=== PATIENT | female | born 1940 | race Caucasian/White ===

== ENCOUNTER 2024-11-21 14:54 | Inpatient (IN) | payer MEDICARE ==
[2024-11-21] MEDS: ASPIRIN 81 MG PO STA (15:39)
[2024-11-21] MEDS: SODIUM CHLORIDE 0.9% 500 ML 500 ML IV STA (15:40)
[2024-11-21] MEDS: DILTIAZEM 5 MG/ML 5 ML VIAL IVP PRN (15:42)
[2024-11-21 15:43] LABS: Basophils # (A) 0.04 10*3/uL (0.00-0.10); Basophils % (A) 0.3 %; HCT 39.4 % (37.2-46.3); HGB 13.4 g/dL (12.0-15.0); Lymphocytes % (A) 6.8 %; MCH 29.6 pg (27.0-32.0); MCV 87.2 fL (80.0-97.0); Mean Platelet Volume 11.1 fL (9.5-12.2); Monocytes # (A) 0.84 10*3/uL (0.20-1.00); Monocytes % (A) 5.7 %; Neutrophils # (A) 12.81 10*3/uL (1.80-7.70); Neutrophils % (A) 86.7 %; Platelet Count 246 10*3/uL (140-440); RBC 4.52 10*6/uL (4.10-5.20); RDW 14.8 % (11.5-14.5); WBC 14.77 10*3/uL (4.50-10.00)
[2024-11-21] MEDS: DILTIAZEM 125 MG in DEXTROSE 5% IN WATER 100 ML IV SCH (15:43)
[2024-11-21] MEDS: HEPARIN SODIUM 1,000 UN/ML (10ML VL) IV ONE (15:47)
--- NOTE | 2024-11-21 15:48 | ED ---
General Adult HPI - General Chief complaint: Arrhythmia/Palpitations Stated complaint: Tachycardia Source: patient, EMS Mode of arrival: EMS Limitations: no limitations - History of Present Illness Initial comments: Patient is an 84-year-old female, previously healthy presenting today for shortness of breath. Patient states over the last week she has noticed exertional shortness of breath. Today she was on her 4 mile walk when she began feeling more short of breath and went into a primary care provider's office where she was found to be in A-fib with RVR. Patient was transferred to hospital via EMS and was given 15 mg of Cardizem prior to arrival. Patient reportedly had heart rate in the 180s prior to Cardizem administration which brought it down to the 120s. Of note patient was also additionally noted to be hypoxic with pulse ox approximately 90% on room air patient herself denies any history of A-fib and is not on blood thinners. She denies any chest pain. N otes intermittent palpitations. Denies any lightheadedness, dizziness, nausea, vomiting, diarrhea, melena, hematochezia, fevers, chills, leg swelling, hemoptysis. Endorses a dry cough. Denies any history of cancer, is a non- smoker. Not on estrogen replacement therapy. No recent travel surgeries or hospitalizations. No history of blood clots. - Related Data Previous Rx's Medication Instructions Recorded Apixaban [Eliquis] 2.5 mg PO BID #60 tab 11/23/24 Amiodarone [Cordarone] 200 mg PO DAILY #180 tab 11/24/24 Atorvastatin [Lipitor] 80 mg PO HS #30 tab 11/24/24 Digoxin [Lanoxin] 125 mcg PO DAILY #30 tab 11/24/24 Furosemide [Lasix] 40 mg PO DAILY #30 tab 11/24/24 Metoprolol Tartrate [Lopressor] 50 mg PO BID #60 tab 11/24/24 Potassium Chloride ER [K-Dur 10] 10 meq PO DAILY 15 Days #15 tab 11/24/24 lisinopriL [Zestril] 2.5 mg PO DAILY #30 tab 11/24/24 Allergies Allergy/AdvReac Type Severity Reaction Status Date / Time No Known Allergies Allergy Verified 11/21/24 16:08 Review of Systems ROS Statement: Those systems with pertinent positive or pertinent negative responses have been documented in the HPI. ROS Other: All systems not noted in ROS Statement are negative. Past Medical History Past Medical History: No Reported History Past Surgical History: No Surgical Hx Reported Past Psychological History: No Psychological Hx Reported Smoking Status: Never smoker Past Alcohol Use History: Occasional Past Drug Use History: None Reported General Exam - General Exam Comments Initial Comments: PE: CONSTITUTIONAL: [no apparent distress, well appearing] SKIN: [warm, dry, no jaundice, hives or petechiae] EYES:[ pupils are equally round, extraocular movements intact without nystagmus, clear conjunctiva, non-icteric sclera] HENT: [normocephalic, atraumatic, moist mucus membranes, oropharynx clear without exudates] NECK: , [Full range of motion, normal appearance] PULMONARY: [clear to auscultation without wheezes, rhonchi, or rales, normal excursion, no accessory muscle use and no stridor] CARDIOVASCULAR:[Tachycardia, irregularly irregular rate and rhythm normal S1 and S2. Holosystolic murmur noted at the apex, no rubs or gallops. Strong radial pulses with intact distal perfusion. No lower extremity edema] GASTROINTESTINAL: [soft, active bowel sounds throughout, non-tender, non- distended, no palpable masses, no rebound or guarding. No hepatosplenomegaly] GENITOURINARY: MUSCULOSKELETAL: [Extremities have no gross deformity, no edema, redness, or swelling. No calf swelling ] NEUROLOGIC: [_a/o x 3, GCS 15, normal mentation and speech. Moves all extremities x 4 without motor or sensory deficit] PSYCHIATRIC:[ _normal mood and affect, thought process is clear and linear] Limitations: no limitations Course Vital Signs 11/21/24 11/21/24 11/21/24 14:58 15:08 15:53 Temperature Pulse Rate 137 H 102 H Pulse Rate [ Clinical Safety Manager ] Respiratory 24 20 Rate Blood Pressure 128/81 118/93 126/86 Blood Pressure [Right Arm] O2 Sat by Pulse 91 L 96 Oximetry 11/21/24 11/22/24 11/22/24 18:32 00:30 06:11 Temperature Pulse Rate 96 101 H 112 H Pulse Rate [ Clinical Safety Manager ] Respiratory 18 20 19 Rate Blood Pressure 120/90 127/95 126/88 Blood Pressure [Right Arm] O2 Sat by Pulse 95 91 L 91 L Oximetry 11/22/24 11/22/24 11/22/24 07:52 09:00 10:29 Temperature 97.8 F Pulse Rate 108 H 115 H 98 Pulse Rate [ Clinical Safety Manager ] Respiratory 16 18 18 Rate Blood Pressure 123/73 124/85 83/68 Blood Pressure [Right Arm] O2 Sat by Pulse 93 L 95 94 L Oximetry 11/22/24 11/22/24 11/22/24 11:04 12:00 12:05 Temperature 98.0 F Pulse Rate 92 102 H Pulse Rate [ 81 Clinical Safety Manager ] Respiratory 18 17 16 Rate Blood Pressure 96/74 100/80 Blood Pressure 105/71 [Right Arm] O2 Sat by Pulse 94 L 95 98 Oximetry 11/22/24 16:00 Temperature 98.4 F Pulse Rate Pulse Rate [ 78 Clinical Safety Manager ] Respiratory 18 Rate Blood Pressure Blood Pressure 101/67 [Right Arm] O2 Sat by Pulse 95 Oximetry EKG Findings - EKG Comments: EKG Findings:: Atrial fibrillation with RVR, rate 135 bpm QT/QTc 326/405 ms, left axis deviation, no clear ST elevations or depressions, Medical Decision Making - Medical Decision Making Was pt. sent in by a medical professional or institution (Dr. PA, MIDDLE SCHOOL COACH, urgent care, hospital, or fdc...) When possible be specific @ -Patient was sent in by primary care provider's office where she had stopped after beginning experiencing symptom Did you speak to anyone other than the patient for history (EMS, parent, family, police, friend...)? What history was obtained from this source @ -No Did you review nursing and triage notes (agree or disagree)? Why? @ -I reviewed and agree with nursing and triage notes Were old charts reviewed (outside hosp., previous admission, EMS record, old EKG, old radiological studies, urgent care reports/EKG's, fdc records)? Report findings @ -Medical records reviewed-no prior records available for Differential Diagnosis (chest pain, altered mental status, abdominal pain women, abdominal pain men, vaginal bleeding, weakness, fever, dyspnea, syncope, headache, dizziness, GI bleed, back pain, seizure, CVA, palpatations, mental health, musculoskeletal)? @ -Differential Palpitations Ventricular arrhythmias, atrial arrhythmias, myocardial infarction, anemia, thyrotoxicosis, electrolyte imbalance, hypokalemia, pulmonary embolism, pulmonary disease, drugs, alcohol, anxiety, stress.... This is not meant to be an all-inclusive list. EKG interpreted by me (3pts min.). @ -As above X-rays interpreted by me (1pt min.). @ -None done CT interpreted by me (1pt min.). @ Personally reviewed CT chest, I see no evidence of pulmonary embolism, bilateral pleural effusions noted, agree with radiologist interpretation U/S interpreted by me (1pt. min.). @ -None done What testing was considered but not performed or refused? (CT, X-rays, U/S, labs)? Why? @ -None What meds were considered but not given or refused? Why? @ -None Did you discuss the management of the patient with other professionals (professionals i.e. , PA, MIDDLE SCHOOL COACH, lab, RT, psych nurse, social security benefits interviewer, reinforcing rod layer, teacher, booking police officer, showcase trimmer)? Give summary @ -No Was smoking cessation discussed for >3mins.? @ -No Was critical care preformed (if so, how long)? @ Yes 35 minutes Were there social determinants of health that impacted care today? How? (Homelessness, low income, unemployed, alcoholism, drug addiction, transportation, low edu. Level, literacy, decrease access to med. care, longterm, rehab)? @ -No Was there de-escalation of care discussed even if they declined (Discuss DNR or withdrawal of care, Hospice)? @ -No What co-morbidities impacted this encounter? (DM, HTN, Smoking, COPD, CAD, Cancer, CVA, ARF, Chemo, Hep., AIDS, mental health diagnosis, sleep apnea, morbid obesity)? @ -None Was patient admitted / discharged? Hospital course, mention meds given and route, prescriptions, significant lab abnormalities, going to OR and other pertinent info. @ Admission- This is a pleasant 84-year-old female, previously healthy presenting today for shortness of breath and found to be in A-fib with RVR. 15 mg Cardizem given prior to arrival that reportedly brought her heart rate from the 180s down to the 120s. On arrival patient has heart rates in 130s to 120s. Blood pressure stable. She is reportedly hypoxic with pulse ox 90% on room air placed on 2 L oxygen nasal cannula. Lungs are clear to auscultation bilaterally and she has no increased work of breathing. Patient will be given 17 mg Cardizem, 0.35 mg/kg bolus, placed on Cardizem drip. Symptoms likely started about 1 week ago given exertional dyspnea began at that time so was started on heparin infusion, anticipate admission. Labs are significant for mild leukocytosis white blood cell count 14.77, D-dimer 1.06. Mild hyponatremia sodium 129 was given 500 cc normal saline. GFR within normal limits, AST/ALT 91/94, troponin 0.031. BNP 9480. Personally viewed CT PE study see no evidence of pulmonary embolism, radiologist does comment on bilateral pleural effusions and anasarca. Given elevated BNP and CT findings patient was given 40 mg IV Lasix. Patient's rate is currently overall controlled on Cardizem infusion. She will be admitted to the hospital for further treatment. Updated pt to findings and plan of care. Case discussed with AMANDEEP Flores, kindly accepts pt for admission. Undiagnosed new problem with uncertain prognosis? @ -No Drug Therapy requiring intensive monitoring for toxicity (Heparin, Nitro, Insulin, Cardizem)? Yes, Cardizem, heparin Were any procedures done? @ -No Diagnosis/symptom? @New onset congestive heart failure, A-fib with RVR, hyponatremia Acute, or Chronic, or Acute on Chronic? Acute Uncomplicated (without systemic symptoms) or Complicated (systemic symptoms)? Complicated Side effects of treatment? @ -No Exacerbation, Progression, or Severe Exacerbation? @ -No Poses a threat to life or bodily function? How? (Chest pain, [place], [place], pneumonia, PE, COPD, DKA, ARF, appy, cholecystitis, CVA, Diverticulitis, Homicidal, Suicidal, threat to staff... and all critical care pts) @ -Yes - Lab Data Result diagrams: 11/23/24 06:58 11/24/24 11:59 Lab Results 11/21/24 11/21/24 11/21/24 Range/Units 15:31 15:31 15:31 WBC 14.77 H (4.50-10.00) 10*3/uL RBC 4.52 (4.10-5.20) 10*6/uL Hgb 13.4 (12.0-15.0) g/dL Hct 39.4 (37.2-46.3) % MCV 87.2 (80.0-97.0) fL MCH 29.6 (27.0-32.0) pg MCHC 34.0 (32.0-37.0) g/dL Plt Count 246 (140-440) 10*3/uL MPV 11.1 (9.5-12.2) fL Immature Gran % (Auto) 0.5 % Neutrophils % 86.7 % Lymphocytes % 6.8 % Monocytes % 5.7 % Eosinophils % 0.0 % Basophils % 0.3 % Immature Gran # 0.08 H (0.00-0.04) 10*3/uL Neutrophils # 12.81 H (1.80-7.70) 10*3/uL Lymphocytes # 1.00 (0.90-5.00) 10*3/uL Monocytes # 0.84 (0.20-1.00) 10*3/uL Eosinophils # 0.00 L (0.04-0.35) 10*3/uL Basophils # 0.04 (0.00-0.10) 10*3/uL PT 14.3 H (10.0-12.5) sec INR 1.4 H (<1.2) APTT 23.2 (22.0-30.0) sec D-Dimer 1.06 H (<0.60) mg/L FEU Sodium 129 L (137-145) mmol/L Potassium 4.5 (3.5-5.1) mmol/L Chloride 96 L (98-107) mmol/L Carbon Dioxide 21 L (22-30) mmol/L Anion Gap 12 mmol/L BUN 25 H (7-17) mg/dL Creatinine 0.88 (0.52-1.04) mg/dL Est GFR (CKD-EPI)AfAm 70 (>60 ml/min/1.73 sqM) Est GFR (CKD-EPI)NonAf 61 (>60 ml/min/1.73 sqM) Glucose 118 H (74-99) mg/dL Calcium 8.8 (8.4-10.2) mg/dL Magnesium 1.9 (1.6-2.3) mg/dL Total Bilirubin 1.0 (0.2-1.3) mg/dL AST 91 H (14-36) U/L ALT 94 H (4-34) U/L Alkaline Phosphatase 81 (38-126) U/L Troponin I (0.000-0.034) ng/mL NT-Pro-B Natriuret Pep pg/mL Total Protein 6.2 L (6.3-8.2) g/dL Albumin 3.7 (3.5-5.0) g/dL TSH 3.560 (0.465-4.680) mIU/L 11/21/24 11/21/24 Range/Units 15:31 15:31 WBC (4.50-10.00) 10*3/uL RBC (4.10-5.20) 10*6/uL Hgb (12.0-15.0) g/dL Hct (37.2-46.3) % MCV (80.0-97.0) fL MCH (27.0-32.0) pg MCHC (32.0-37.0) g/dL Plt Count (140-440) 10*3/uL MPV (9.5-12.2) fL Immature Gran % (Auto) % Neutrophils % % Lymphocytes % % Monocytes % % Eosinophils % % Basophils % % Immature Gran # (0.00-0.04) 10*3/uL Neutrophils # (1.80-7.70) 10*3/uL Lymphocytes # (0.90-5.00) 10*3/uL Monocytes # (0.20-1.00) 10*3/uL Eosinophils # (0.04-0.35) 10*3/uL Basophils # (0.00-0.10) 10*3/uL PT (10.0-12.5) sec INR (<1.2) APTT (22.0-30.0) sec D-Dimer (<0.60) mg/L FEU Sodium (137-145) mmol/L Potassium (3.5-5.1) mmol/L Chloride (98-107) mmol/L Carbon Dioxide (22-30) mmol/L Anion Gap mmol/L BUN (7-17) mg/dL Creatinine (0.52-1.04) mg/dL Est GFR (CKD-EPI)AfAm (>60 ml/min/1.73 sqM) Est GFR (CKD-EPI)NonAf (>60 ml/min/1.73 sqM) Glucose (74-99) mg/dL Calcium (8.4-10.2) mg/dL Magnesium (1.6-2.3) mg/dL Total Bilirubin (0.2-1.3) mg/dL AST (14-36) U/L ALT (4-34) U/L Alkaline Phosphatase (38-126) U/L Troponin I 0.031 (0.000-0.034) ng/mL NT-Pro-B Natriuret Pep 9480 pg/mL Total Protein (6.3-8.2) g/dL Albumin (3.5-5.0) g/dL TSH (0.465-4.680) mIU/L Disposition Clinical Impression: New onset atrial fibrillation, New onset of congestive heart failure Disposition: ADMITTED IP TO THIS HOSP Condition: Stable
[2024-11-21] MEDS: HEPARIN SOD,PORK IN 0.45% NACL 25,000 UNIT in 0.45% NACL 1 250ML.BAG IV SCH (15:49)
[2024-11-21 15:53] LABS: ALT 94 U/L (4-34); AST 91 U/L (14-36); African American GFR (CKD) 70 (>60 ml/min/1.73 sqM); Albumin 3.7 g/dL (3.5-5.0); Alkaline Phosphatase 81 U/L (38-126); Anion Gap 12 mmol/L; Blood Urea Nitrogen 25 mg/dL (7-17); Calcium 8.8 mg/dL (8.4-10.2); Carbon Dioxide 21 mmol/L (22-30); Chloride 96 mmol/L (98-107); Glucose 118 mg/dL (74-99); Magnesium 1.9 mg/dL (1.6-2.3); Non-African American GFR(CKD) 61 (>60 ml/min/1.73 sqM); Potassium 4.5 mmol/L (3.5-5.1); Sodium 129 mmol/L (137-145); Total Protein 6.2 g/dL (6.3-8.2)
[2024-11-21 16:04] LABS: INR 1.4 (<1.2); Partial Thromboplastin Time 23.2 sec (22.0-30.0); Prothrombin Time 14.3 sec (10.0-12.5)
--- NOTE | 2024-11-21 17:38 | CT ---
EXAMINATION TYPE: CT chest angio for PE CT DLP: 209.6 mGycm, Automated exposure control for dose reduction was used. DATE OF EXAM: 11/21/2024 5:24 PM COMPARISON: None CLINICAL INDICATION:Female, 84 years old with history of a fib, hypoxia; a fib, hypoxia TECHNIQUE/CONTRAST: CTA scan of the thorax is performed with IV Contrast, patient injected with 61ml mL of Isovue 370, pu lmonary embolism protocol. MIP images are created and reviewed. FINDINGS: Pulmonary Artery: There is no evidence for a filling defect within the pulmonary vasculature to sugge st acute pulmonary embolism. The pulmonary artery is of normal size. Reflux of contrast into the IV C and hepatic veins. Lungs/Pleura: Moderate bilateral pleural effusions with scattered regions of intralobular septal thic kening and patchy groundglass opacities within the bilateral lower lobes. Scattered regions of linear atelectasis. Additional view consolidated opacities within the bilateral upper lobes. Biapical pleur al-parenchymal scarring. Airway: Large airways are patent. Heart: Cardiomegaly is demonstrated.Trace pericardial effusion No significant coronary artery calcifi cations. Vasculature: No evidence of aortic aneurysm. Mild atherosclerotic calcification of the aorta and its branches. Mediastinum: No gross evidence of adenopathy. Musculoskeletal: No acute osseous abnormalities. Remote healed left posterior eighth rib fracture wit h sclerosis. Soft Tissues: Diffuse anasarca. Lower neck: No significant findings. Upper Abdomen: Mesenteric edema.. IMPRESSION: 1. No evidence of pulmonary embolism. 2. Cardiomegaly with moderate bilateral pleural effusions, interlobular septal thickening, and ground glass opacities. Additional diffuse anasarca. Findings suggest CHF exacerbation/volume overload. Supe rimposed infectious process is not excluded. [facility], , 11/21/2024 5:36 PM
[2024-11-21] MEDS: FUROSEMIDE 10 MG/ML 4 ML VIAL IV STA (18:43)
[2024-11-21] MEDS: ATORVASTATIN 80 MG TAB PO SCH (20:34)
[2024-11-22 06:12] LABS: Basophils # (A) 0.04 10*3/uL (0.00-0.10); Basophils % (A) 0.3 %; Eosinophils # (A) 0.03 10*3/uL (0.04-0.35); Eosinophils % (A) 0.2 %; HCT 37.8 % (37.2-46.3); HGB 12.9 g/dL (12.0-15.0); Lymphocytes # (A) 0.95 10*3/uL (0.90-5.00); Lymphocytes % (A) 6.4 %; MCH 29.9 pg (27.0-32.0); MCHC 34.1 g/dL (32.0-37.0); MCV 87.5 fL (80.0-97.0); Mean Platelet Volume 10.9 fL (9.5-12.2); Monocytes # (A) 0.82 10*3/uL (0.20-1.00); Monocytes % (A) 5.5 %; Neutrophils # (A) 13.01 10*3/uL (1.80-7.70); Neutrophils % (A) 86.9 %; Platelet Count 240 10*3/uL (140-440); RBC 4.32 10*6/uL (4.10-5.20); RDW 14.9 % (11.5-14.5); WBC 14.95 10*3/uL (4.50-10.00)
[2024-11-22 06:38] LABS: ALT 94 U/L (4-34); AST 87 U/L (14-36); African American GFR (CKD) 75 (>60 ml/min/1.73 sqM); Albumin 3.3 g/dL (3.5-5.0); Alkaline Phosphatase 72 U/L (38-126); Anion Gap 7 mmol/L; Bilirubin, Delta 0.2 mg/dL (0.0-0.2); Bilirubin,Unconjugated 0.6 mg/dL (0.0-1.1); Blood Urea Nitrogen 23 mg/dL (7-17); Calcium 8.8 mg/dL (8.4-10.2); Carbon Dioxide 27 mmol/L (22-30); Chloride 94 mmol/L (98-107); Glucose 91 mg/dL (74-99); Magnesium 1.8 mg/dL (1.6-2.3); Non-African American GFR(CKD) 65 (>60 ml/min/1.73 sqM); Potassium 4.1 mmol/L (3.5-5.1); Sodium 128 mmol/L (137-145); Total Bilirubin 0.8 mg/dL (0.2-1.3); Total Protein 5.6 g/dL (6.3-8.2)
--- NOTE | 2024-11-22 07:01 | P.HPIM ---
History of Present Illness This is a pleasant 84 years old female with no significant past medical history. Presents because of dyspnea. Patient states she walks every day and lately she started having dyspnea since her Wednesday. Yesterday she was walking into her usual routine when she decided to walk and into one of the doctors office found to have high heart rate about 180-190, she and she was referred to the hospital" she got Cardizem dose and her heart rate went down to 120S She denies chest pain or coughing. No specific GI/ symptom. No headache dizziness weakness or numbness. She denies smoking or alcohol. Vital stable and she is afebrile but heart rate was 137 earlier currently better controlled 96 while on treatment she is not saturating 90s on 3 L oxygen via nasal cannula. Labs showing leukocytosis of 14.7, sodium 129, liver enzymes mildly elevated. D-dimer elevated at 1.0 Troponin are elevated 0.03 and 0.04. TSH is normal at 3.5 proBNP is elevated 9480 CTA showing no pulmonary embolism with mild cardiomegaly and cannot glass [place] suspicious for CHF, pneumonia however is not excluded. EKG showing A-fib with a rate of [address]-T changes Patient currently started on Cardizem and heparin drips also she was started on IV Lasix and aspirin Review of Systems Review of systems CONSTITUTIONAL: No fever, no malaise, no fatigue. HEENT: No recent visual problems or hearing problems. Denied any sore throat. CARDIOVASCULAR: No orthopnea, PND, no palpitations, no syncope. PULMONARY: no cough, no hemoptysis. GASTROINTESTINAL: No diarrhea, no nausea, no vomiting, no abdominal pain. Normoactive bowel sounds. NEUROLOGICAL: No headaches, no weakness, no numbness. HEMATOLOGICAL: Denies any bleeding or petechiae. GENITOURINARY: Denies any burning micturition, frequency, or urgency. MUSCULOSKELETAL/RHEUMATOLOGICAL: Denies any joint pain, swelling, or any muscle pain. ENDOCRINE: Denies any polyuria or polydipsia. Past Medical History Past Medical History: No Reported History Past Surgical History: No Surgical Hx Reported Past Psychological History: No Psychological Hx Reported Smoking Status: Never smoker Past Alcohol Use History: Occasional Past Drug Use History: None Reported Medications and Allergies Home Medications Medication Instructions Recorded Confirmed Type Apixaban [Eliquis] 5 mg PO BID #60 tab 11/22/24 Rx Allergies Allergy/AdvReac Type Severity Reaction Status Date / Time No Known Allergies Allergy Verified 11/21/24 16:08 Physical Exam Vitals: Vital Signs Pulse Resp BP Pulse Ox 11/22/24 06:11 112 H 19 126/88 91 L 11/22/24 00:30 101 H 20 127/95 91 L 11/21/24 18:32 96 18 120/90 95 11/21/24 15:53 102 H 20 126/86 11/21/24 15:08 118/93 96 11/21/24 14:58 137 H 24 128/81 91 L Intake and Output 11/21/24 11/21/24 11/22/24 14:59 22:59 06:59 Other: Weight 49.895 kg GENERAL: The patient is alert and oriented x3, not in any acute distress. Well developed, well nourished. HEENT: Pupils are round and equally reacting to light. EOMI. No scleral icterus. No conjunctival pallor. Normocephalic, atraumatic. No pharyngeal erythema. No thyromegaly. CARDIOVASCULAR: S1 and S2 present. No murmurs, rubs, or gallops. -PULMONARY: Chest is clear to auscultation, no wheezing , mild bilateral basal crackles. ABDOMEN: Soft, nontender, nondistended, normoactive bowel sounds. No palpable organomegaly. MUSCULOSKELETAL: No joint swelling or deformity. EXTREMITIES: No cyanosis, clubbing. 2+ bilateral pitting leg edema. NEUROLOGICAL: Gross neurological examination did not reveal any focal deficits. SKIN: No rashes. no petechiae. Results CBC & Chem 7: 11/22/24 05:52 11/22/24 05:52 Labs: Abnormal Lab Results - Last 24 Hours (Table) 11/21/24 11/21/24 11/21/24 Range/Units 15:31 15:31 15:31 WBC 14.77 H (4.50-10.00) 10*3/uL Immature Gran # 0.08 H (0.00-0.04) 10*3/uL Neutrophils # 12.81 H (1.80-7.70) 10*3/uL Eosinophils # 0.00 L (0.04-0.35) 10*3/uL PT 14.3 H (10.0-12.5) sec INR 1.4 H (<1.2) APTT (22.0-30.0) sec D-Dimer 1.06 H (<0.60) mg/L FEU Sodium 129 L (137-145) mmol/L Chloride 96 L (98-107) mmol/L Carbon Dioxide 21 L (22-30) mmol/L BUN 25 H (7-17) mg/dL Glucose 118 H (74-99) mg/dL AST 91 H (14-36) U/L ALT 94 H (4-34) U/L Troponin I (0.000-0.034) ng/mL Total Protein 6.2 L (6.3-8.2) g/dL Albumin (3.5-5.0) g/dL 11/21/24 11/21/24 11/22/24 Range/Units 21:52 21:53 05:52 WBC (4.50-10.00) 10*3/uL Immature Gran # (0.00-0.04) 10*3/uL Neutrophils # (1.80-7.70) 10*3/uL Eosinophils # (0.04-0.35) 10*3/uL PT (10.0-12.5) sec INR (<1.2) APTT 39.4 H 36.5 H (22.0-30.0) sec D-Dimer (<0.60) mg/L FEU Sodium (137-145) mmol/L Chloride (98-107) mmol/L Carbon Dioxide (22-30) mmol/L BUN (7-17) mg/dL Glucose (74-99) mg/dL AST (14-36) U/L ALT (4-34) U/L Troponin I 0.041 H* (0.000-0.034) ng/mL Total Protein (6.3-8.2) g/dL Albumin (3.5-5.0) g/dL 11/22/24 11/22/24 Range/Units 05:52 05:52 WBC 14.95 H (4.50-10.00) 10*3/uL Immature Gran # 0.10 H (0.00-0.04) 10*3/uL Neutrophils # 13.01 H (1.80-7.70) 10*3/uL Eosinophils # 0.03 L (0.04-0.35) 10*3/uL PT (10.0-12.5) sec INR (<1.2) APTT (22.0-30.0) sec D-Dimer (<0.60) mg/L FEU Sodium 128 L (137-145) mmol/L Chloride 94 L (98-107) mmol/L Carbon Dioxide (22-30) mmol/L BUN 23 H (7-17) mg/dL Glucose (74-99) mg/dL AST 87 H (14-36) U/L ALT 94 H (4-34) U/L Troponin I (0.000-0.034) ng/mL Total Protein 5.6 L (6.3-8.2) g/dL Albumin 3.3 L (3.5-5.0) g/dL Assessment and Plan Assessment: New onset atrial fibrillation with RVR Acute CHF Hypervolemic hyponatremia Leukocytosis, pneumonia still possibility although felt less likely Acute hypoxic respiratory failure secondary to above Mild transaminitis Elevated D-dimer with negative CTA for pulmonary embolism Plan: Continue with heparin drip Continue with Cardizem drip Continue with IV Lasix 40 mg twice daily Monitor creatinine and electrolytes and vitals Cardiology consult Follow-up echocardiogram Continue with aspirin Labs and medication were reviewed.. Continue same treatment. Continue with symptomatic treatment. Resume home medication. Monitor labs and vitals. DVT and GI prophylaxis. Further recommendations as per clinical course of the patient DVT prophylaxis: heparin GI Prophylaxis: Pepcid PT/OT: Pending Prognosis is guarded
[2024-11-22] MEDS: FUROSEMIDE 10 MG/ML 4 ML VIAL IV SCH (07:47)
[2024-11-22] MEDS: HEPARIN SODIUM 1,000 UN/ML (10ML VL) IV PRN (08:09)
[2024-11-22] MEDS: APIXABAN 2.5 MG TABLET PO SCH (08:55)
[2024-11-22] MEDS: FAMOTIDINE 20 MG/2 ML VIAL IV SCH (08:55)
[2024-11-22] MEDS: METOPROLOL TARTRATE 25 MG TAB PO SCH (08:55)
--- NOTE | 2024-11-22 09:21 | P.CRDCN ---
History of Present Illness History of present illness: HISTORY OF PRESENT ILLNESS: This is a 84-year-old female with no significant past medical history. Patient does not follow with a office helper. We have been asked to see the patient in co nsultation for atrial fibrillation and CHF. Patient examined at the bedside. Patient states that she was on her normal walk yesterday when she began to feel short of breath. She states that she was walking right near her primary care physician's office so she decided to walk inside and was seen by a provider. Patient was found to be in A-fib with RVR and she was directed to come to the emergency room. Patient denies any known history of atrial fibrillation. Patient was started on IV heparin and IV Cardizem. She remains in atrial fibrillation at the time of examination with heart rate in the 120s. She reports mild shortness of breath. Denies any chest pain or pressure. DIAGNOSTICS: - EKG reveals A-fib with RVR. - Chest CTA: Negative for pulmonary embolism. Cardiomegaly with moderate bilateral pleural effusions, intralobular septal thickening and groundglass opacities. Additional diffuse anasarca. - Laboratory data: WBC 14.95. Hemoglobin 12.9. Platelet count 240. D-dimer 1. 06. Sodium 128. Potassium 4.1. BUN 23. Creatinine 0.83. AST 87. ALT 94. Troponin 0.031. 0.041. proBNP 9480. TSH 3.560. - Current home cardiac medications include none. - No previous echocardiogram, stress test, or cardiac catheterization available in EMR for review REVIEW OF SYSTEMS: At the time of my exam: CONSTITUTIONAL: Denies fever or chills. HEENT: Denies blurred vision, vision changes, or eye pain. Denies hemoptysis CARDIOVASCULAR: Denies chest pain. Denies orthopnea. Denies PND. Denies palpitations RESPIRATORY: Denies shortness of breath. GASTROINTESTINAL: Denies abdominal pain. Denies nausea or vomiting. HEMATOLOGIC: Denies bleeding disorders. GENITOURINARY: Denies any blood in urine. SKIN: Denies pruitis. Denies rash. PHYSICAL EXAM: VITAL SIGNS: Reviewed. GENERAL: Well-developed in no acute distress. HEENT: Head is normocephalic. Pupils are equal, round. Sclerae anicteric. Mucous membranes of the mouth are moist. Neck supple. No JVD or thyromegaly LUNGS: Respirations even and unlabored. Lungs essentially clear to auscultation bilaterally. HEART: Mildly tachycardic. Irregular rate and rhythm. S1 and S2 heard. ABDOMEN: Soft. Nondistended. Nontender. EXTREMITIES: Normal range of motion. No clubbing or cyanosis. Peripheral pulses intact. No lower extremity edema NEUROLOGIC: Awake and alert. Oriented x 3. ASSESSMENT: New onset atrial fibrillation with RVR Acute heart failure, type unknown, echo pending Hyponatremia PLAN: Obtain 2D echo to assess cardiac structure and function TSH checked and within normal limits Begin metoprolol tartrate 25 mg twice daily Discontinue IV Cardizem after metoprolol administration if heart rate remains stable Begin Eliquis 2.5 mg twice a day. Discontinue IV heparin. Continue IV Lasix 40 mg every 12 hours Daily weights, accurate intake and output, and monitoring of kidney function Continue telemetry monitoring Further recommendations pending patient course Nurse practitioner note has been reviewed by physician. Signing provider agrees with the documented findings, assessment, and plan of care documented by INFORMATION SUPPORT PROJECT MANAGER as a scribe. Past Medical History Past Medical History: No Reported History Past Surgical History: No Surgical Hx Reported Past Psychological History: No Psychological Hx Reported Smoking Status: Never smoker Past Alcohol Use History: Occasional Past Drug Use History: None Reported Medications and Allergies Home Medications Medication Instructions Recorded Confirmed Type Apixaban [Eliquis] 5 mg PO BID #60 tab 11/22/24 Rx Allergies Allergy/AdvReac Type Severity Reaction Status Date / Time No Known Allergies Allergy Verified 11/21/24 16:08 Physical Exam Vitals: Vital Signs Pulse Resp BP Pulse Ox 11/22/24 07:52 108 H 16 123/73 93 L 11/22/24 06:11 112 H 19 126/88 91 L 11/22/24 00:30 101 H 20 127/95 91 L 11/21/24 18:32 96 18 120/90 95 11/21/24 15:53 102 H 20 126/86 11/21/24 15:08 118/93 96 11/21/24 14:58 137 H 24 128/81 91 L Results 11/22/24 05:52 11/22/24 05:52 Cardiac Enzymes 11/21/24 11/21/24 11/21/24 Range/Units 15:31 15:31 21:53 AST 91 H (14-36) U/L Troponin I 0.031 0.041 H* (0.000-0.034) ng/mL 11/22/24 Range/Units 05:52 AST 87 H (14-36) U/L Troponin I (0.000-0.034) ng/mL Coagulation 11/21/24 11/21/24 11/22/24 Range/Units 15:31 21:52 05:52 PT 14.3 H (10.0-12.5) sec APTT 23.2 39.4 H 36.5 H (22.0-30.0) sec CBC 11/21/24 11/22/24 Range/Units 15:31 05:52 WBC 14.77 H 14.95 H (4.50-10.00) 10*3/uL RBC 4.52 4.32 (4.10-5.20) 10*6/uL Hgb 13.4 12.9 (12.0-15.0) g/dL Hct 39.4 37.8 (37.2-46.3) % Plt Count 246 240 (140-440) 10*3/uL Comprehensive Metabolic Panel 11/21/24 11/22/24 Range/Units 15:31 05:52 Sodium 129 L 128 L (137-145) mmol/L Potassium 4.5 4.1 (3.5-5.1) mmol/L Chloride 96 L 94 L (98-107) mmol/L Carbon Dioxide 21 L 27 (22-30) mmol/L BUN 25 H 23 H (7-17) mg/dL Creatinine 0.88 0.83 (0.52-1.04) mg/dL Glucose 118 H 91 (74-99) mg/dL Calcium 8.8 8.8 (8.4-10.2) mg/dL Unconjugated Bilirubin 0.6 (0.0-1.1) mg/dL AST 91 H 87 H (14-36) U/L ALT 94 H 94 H (4-34) U/L Alkaline Phosphatase 81 72 (38-126) U/L Total Protein 6.2 L 5.6 L (6.3-8.2) g/dL Albumin 3.7 3.3 L (3.5-5.0) g/dL Current Medications Generic Name Dose Route Start Last Admin Trade Name Freq PRN Reason Stop Dose Admin Atorvastatin Calcium 80 mg 11/21/24 21:00 11/21/24 20:34 Atorvastatin 80 Mg Tab PO 80 mg HS DAMIAN Administration Famotidine 20 mg 11/22/24 09:00 Famotidine 20 Mg/2 Ml Vial IV DAILY [facility] Furosemide 40 mg 11/22/24 06:00 11/22/24 07:47 Furosemide 10 Mg/Ml 4 Ml Vial IV 40 mg Q12H [facility]IAN Administration Diltiazem HCl 125 mg/ Dextrose 125 mls @ 5 mls/hr 11/21/24 15:30 11/21/24 15:43 /Water IV 5 mg/hr .Q24H DAMIAN 5 mls/hr Administration Protocol 5 MG/HR Heparin Sodium/Sodium Chloride 250 mls @ 5.987 mls/hr 11/21/24 15:30 11/21/24 15:49 25,000 unit/ Sodium Chloride IV 12 units/kg/hr .Q24H [facility] 5.987 mls/hr Administration Protocol 12 UNITS/KG/HR Metoprolol Tartrate 25 mg 11/22/24 09:00 Metoprolol Tartrate 25 Mg Tab PO BID [facility] 11/22/24 05:52 11/22/24 05:52
[2024-11-22 12:49] LABS: Appearance,Urine Clear (Clear); Bacteria,Urine Rare /hpf; Bilirubin,Urine Negative (Negative); Blood,Urine Trace (Negative); Color,Urine Colorless; Glucose,Urine (UA) Negative (Negative); Ketones,Urine Negative (Negative); Leukocyte Esterase,Urine Negative (Negative); Nitrite,Urine Negative (Negative); PH, Urine 6.5 (5.0-8.0); Protein,Urine Negative (Negative); Specific Gravity,Urine 1.007 (1.001-1.035); Squamous Epithelial Cell,Urine <1 /hpf (0-4); Urobilinogen,Urine <2.0 mg/dL (<2.0); WBC,Urine <1 /hpf (0-5)
--- NOTE | 2024-11-22 16:55 | CA ---
Transthoracic Echo Report Name: Alexa Bender Age: 84 Gender: F : 1940 Exam Date: 11/22/2024 11:17 Exam Location: [place] Echo Ht (in): 62 Wt (lb): 110 Ordering Physician: Mirta Moran MD Attending/Referring Phys: Manager Client Luis Alvarez RDCS Procedure CPT: Indications: Heart failure Cardiac Hx: Technical Quality: Good Contrast 1: Definity Total Dose (mL): 2 Contrast 2: Total Dose (mL): MEASUREMENTS (Male / Female) Normal Values 2D ECHO LV Diastolic Diameter PLAX 4.8 cm 4.2 - 5.9 / 3.9 - 5.3 cm LV Systolic Diameter PLAX 4.4 cm IVS Diastolic Thickness 0.8 cm 0.6 - 1.0 / 0.6 - 0.9 cm LVPW Diastolic Thickness 0.9 cm 0.6 - 1.0 / 0.6 - 0.9 cm LV Relative Wall Thickness 0.4 RV Internal Dim ED PLAX 2.9 cm LVOT Diameter 1.8 cm LA Systolic Diameter LX 4.0 cm 3.0 - 4.0 / 2.7 - 3.8 cm LV Diastolic Volume MOD BP 112.8 cm??? 67 - 155 / 56 - 104 cm??? LV Systolic Volume MOD BP 75.8 cm??? 22 - 58 / 19 - 49 cm??? LV Ejection Fraction MOD BP 32.8 % >= 55 % LV Diastolic Volume MOD 4C 81.3 cm??? LV Systolic Volume MOD 4C 58.1 cm??? LV Ejection Fraction MOD 4C 28.5 % LV Diastolic Length 4C 8.0 cm LV Systolic Length 4C 7.0 cm LV Diastolic Volume MOD 2C 85.6 cm??? LV Systolic Volume MOD 2C 55.9 cm??? LV Ejection Fraction MOD 2C 34.7 % LV Diastolic Length 2C 8.0 cm LV Systolic Length 2C 7.0 cm LA Volume 89.3 cm??? 18 - 58 / 22 - 52 cm??? LA Volume Index 60.5 cm???/m??? 16 - 28 cm???/m??? DOPPLER MR Peak Velocity 469.3 cm/s MR Peak Gradient 88.1 mmHg MR Flow Rate PISA 112.8 cm???/s TR Peak Velocity 269.3 cm/s TR Peak Gradient 29.0 mmHg Right Atrial Pressure 5.0 mmHg Pulmonary Artery Systolic Pressu 34.0 mmHg Right Ventricular Systolic Press 34.0 mmHg FINDINGS Left Ventricle Left ventricular ejection fraction is estimated at 20%. Severely reduced global left ventricular systolic function. Akinetic inferior wall. Right Ventricle Mild right ventricular dilatation. Right ventricular systolic pressure within normal limits. Right Atrium Severe right atrial dilatation. Left Atrium Severely increased left atrial volume. Mitral Valve Mitral annular calcification. No mitral stenosis. [id number] mitral regurgitation. Aortic Valve Trileaflet aortic valve. No aortic valve stenosis or regurgitation. Tricuspid Valve Structurally normal tricuspid valve. No tricuspid stenosis. [id number] tricuspid regurgitation. Pulmonic Valve Structurally normal pulmonic valve. No pulmonic stenosis. Trace pulmonic regurgitation. Pericardium Small pericardial effusion. Left pleural effusion. Aorta Normal size aortic root and proximal ascending aorta. CONCLUSIONS Left ventricular ejection fraction 20% Moderate to severe mitral regurgitation. Consider EDEN if clinically indicated Moderate to severe tricuspid regurgitation Small pericardial effusion Left pleural effusion Previewed by: Dr. Finn South DO (Electronically Signed) Final Date: 22 November 2024 16:54
[2024-11-22 19:16] VITALS: RESP 18
[2024-11-22] MEDS: HALOPERIDOL LACTATE 5 MG/ML 1 ML VIAL IM PRN (20:02)
[2024-11-22] MEDS: QUEtiapine 25 MG TAB PO SCH (22:14)
[2024-11-23] MEDS: METOPROLOL TARTRATE 50 MG TAB PO SCH (07:01)
[2024-11-23 08:11] LABS: Basophils # (A) 0.03 10*3/uL (0.00-0.10); Basophils % (A) 0.2 %; Eosinophils # (A) 0.11 10*3/uL (0.04-0.35); Eosinophils % (A) 0.8 %; HCT 38.8 % (37.2-46.3); HGB 12.8 g/dL (12.0-15.0); Lymphocytes # (A) 0.89 10*3/uL (0.90-5.00); Lymphocytes % (A) 6.4 %; MCH 29.1 pg (27.0-32.0); MCV 88.2 fL (80.0-97.0); Monocytes # (A) 0.69 10*3/uL (0.20-1.00); Neutrophils # (A) 11.98 10*3/uL (1.80-7.70); Neutrophils % (A) 86.9 %; Platelet Count 252 10*3/uL (140-440)
[2024-11-23 08:26] LABS: African American GFR (CKD) 64 (>60 ml/min/1.73 sqM); Anion Gap 10 mmol/L; Blood Urea Nitrogen 23 mg/dL (7-17); Calcium 8.5 mg/dL (8.4-10.2); Carbon Dioxide 32 mmol/L (22-30); Chloride 91 mmol/L (98-107); Glucose 93 mg/dL (74-99); Non-African American GFR(CKD) 56 (>60 ml/min/1.73 sqM); Potassium 3.4 mmol/L (3.5-5.1); Sodium 133 mmol/L (137-145)
[2024-11-23 11:26] VITALS: BMI 22.1
[2024-11-23] MEDS: AMIODARONE 200 MG TAB PO SCH (12:34)
[2024-11-23] MEDS: FUROSEMIDE 40 MG TAB PO SCH (12:34)
--- NOTE | 2024-11-23 12:48 | P.PN ---
Subjective HISTORY OF PRESENT ILLNESS: This is a 84-year-old female with no significant past medical history. 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 We have been asked to see the patient in consultation for atrial fibrillation and CHF. Patient examined at the bedside. Patient states that she was on her normal walk yesterday when she began to feel short of breath. She states that she was walking right near her primary care physician's office so she decided to walk inside and was seen by a provider. Patient was found to be in A-fib with RVR and she was directed to come to the emergency room. Patient denies any known history of atrial fibrillation. Patient was started on IV heparin and IV Cardizem. She remains in atrial fibrillation at the time of examination with heart rate in the 120s. She reports mild shortness of breath. Denies any chest pain or pressure. DIAGNOSTICS: - EKG reveals A-fib with RVR. - Chest CTA: Negative for pulmonary embolism. Cardiomegaly with moderate bilateral pleural effusions, intralobular septal thickening and groundglass opacities. Additional diffuse anasarca. - Laboratory data: WBC 14.95. Hemoglobin 12.9. Platelet count 240. D-dimer 1.06. Sodium 128. Potassium 4.1. BUN 23. Creatinine 0.83. AST 87. ALT 94. Troponin 0.031. 0.041. proBNP 9480. TSH 3.560. - Current home cardiac medications include none. - No previous echocardiogram, stress test, or cardiac catheterization available in EMR for review 11/23/2024 Patient examined this morning at the bedside. Patient currently has a auto club safety program coordinator at the bedside as she tried to leave the unit earlier per nursing. Patient currently denies chest pain or pressure. She denies shortness of breath. She remains in atrial fibrillation with controlled ventricular rate. She remains on IV Lasix. BUN today 23. Creatinine 0.94. Sodium improved to 133. Echocardiogram completed revealing ejection fraction 20% with akinetic inferior wall, moderate to severe mitral regurgitation, moderate to severe tricuspid regurgitation, and small pericardial effusion PHYSICAL EXAM: VITAL SIGNS: Reviewed. GENERAL: Well-developed in no acute distress. HEENT: Head is normocephalic. Pupils are equal, round. Sclerae anicteric. Mucous membranes of the mouth are moist. Neck supple. No JVD or thyromegaly LUNGS: Respirations even and unlabored. Lungs essentially clear to auscultation bilaterally. HEART: Irregular rate and rhythm. S1 and S2 heard. ABDOMEN: Soft. Nondistended. Nontender. EXTREMITIES: Normal range of motion. No clubbing or cyanosis. Peripheral pulses intact. No lower extremity edema NEUROLOGIC: Awake and alert. 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 Begin oral Lasix 40 mg daily Add oral amiodarone 400 mg twice a day Add lisinopril 2.5 mg daily Continue anticoagulation with Eliquis Further recommendations pending patient course Nurse practitioner note has been reviewed by physician. Signing provider agrees with the documented findings, assessment, and plan of care documented by STOCK CONTROLLER as a scribe. Objective - Vital Signs Vital signs: Vital Signs Temp 97.4 F L 11/23/24 08:00 Pulse 124 H 11/23/24 08:00 Resp 18 11/23/24 08:00 BP 91/61 11/23/24 08:00 Pulse Ox 97 11/23/24 08:07 FiO2 21 11/23/24 08:07 Intake & Output 11/22/24 11/23/24 11/23/24 18:59 06:59 18:59 Intake Total 222.389 240 118 Output Total 1100 Balance -877.611 240 118 Weight 55 kg 55 kg Intake: Intake, IV Titration 222.389 Amount Diltiazem 125 mg In 125 Dextrose 5% in Water 100 ml @ 5 MG/HR 5 mls/hr IV .Q24H [facility] Rx#:[id number] Heparin Sod,Pork in 0.45% 97.389 NaCl 25,000 unit In 0.45 % NaCl 1 250ml.bag @ 12 UNITS/KG/HR 5.987 mls/hr IV .Q24H [facility] Rx#: [id number] Oral 240 118 Output: Urine 1100 Other: Voiding Method Toilet - Labs CBC & Chem 7: 11/23/24 06:58 11/23/24 06:58 Labs: Abnormal Lab Results - Last 24 Hours (Table) 11/22/24 11/23/24 11/23/24 Range/Units 12:16 06:58 06:58 WBC 13.80 H (4.50-10.00) 10*3/uL Immature Gran # 0.10 H (0.00-0.04) 10*3/uL Neutrophils # 11.98 H (1.80-7.70) 10*3/uL Lymphocytes # 0.89 L (0.90-5.00) 10*3/uL Sodium 133 L (137-145) mmol/L Potassium 3.4 L (3.5-5.1) mmol/L Chloride 91 L (98-107) mmol/L Carbon Dioxide 32 H (22-30) mmol/L BUN 23 H (7-17) mg/dL Urine Blood Trace H (Negative) Urine Bacteria Rare H (None) /hpf
--- NOTE | 2024-11-23 15:17 | P.PN ---
Subjective This is a pleasant 84 years old female with no significant past medical history. Presents because of dyspnea. Patient states she walks every day and lately she started having dyspnea since her Wednesday. Yesterday she was walking into her usual routine when she decided to walk and into one of the doctors office found to have high heart rate about 180-190, she and she was referred to the hospital" she got Cardizem dose and her heart rate went down to 120S She denies chest pain or coughing. No specific GI/ symptom. No headache dizziness weakness or numbness. She denies smoking or alcohol. Vital stable and she is afebrile but heart rate was 137 earlier currently better controlled 96 while on treatment she is not saturating 90s on 3 L oxygen via nasal cannula. Labs showing leukocytosis of 14.7, sodium 129, liver enzymes mildly elevated. D-dimer elevated at 1.0 Troponin are elevated 0.03 and 0.04. TSH is normal at 3.5 proBNP is elevated 9480 CTA showing no pulmonary embolism with mild cardiomegaly and cannot glass opacity suspicious for CHF, pneumonia however is not excluded. EKG showing A-fib with a rate of [address]-T changes Patient currently started on Cardizem and heparin drips also she was started on IV Lasix and aspirin 11/23 Patient alert awake oriented x 3 Yesterday she wanted to leave but her sister convinced her to stay Currently she is sitting in chair looks comfortable looks relaxed denies any spe cific complaint no chest pain or dyspnea No abdominal pain vomiting or diarrhea no urinary complaint. Sitter at bedside for safety Heart rate is still uncontrolled more than 110 after adding amiodarone 400 mg. Lasix IV was switched to oral dose. Her sodium improved up to 133. She still have mild leukocytosis around 13-14,000, unknown source of infection. No need for antibiotics for now Cardizem drip was stopped as well and heparin drip was stopped and started on Eliquis 2.5 mg Ejection fraction showed impairment about 20% with moderate to severe mitral regurgitation and tricuspid regurgitation CT of the chest was negative for PE showing CHF but pneumonia not excluded however procalcitonin came back negative less than 0.2 making pneumonia very unlikely. Patient also with nonspecific symptoms and no fever. Active Medications Generic Name Dose Route Start Last Admin Trade Name Freq PRN Reason Stop Dose Admin Amiodarone HCl 400 mg 11/23/24 11:00 11/23/24 12:34 Amiodarone 200 Mg Tab PO 400 mg BID DAMIAN Administration Apixaban 2.5 mg 11/22/24 09:00 11/23/24 08:40 Apixaban 2.5 Mg Tablet PO 2.5 mg BID DAMIAN Administration Protocol Atorvastatin Calcium 80 mg 11/21/24 21:00 11/22/24 22:14 Atorvastatin 80 Mg Tab PO 80 mg HS DAMIAN Administration Famotidine 20 mg 11/22/24 09:00 11/23/24 08:40 Famotidine 20 Mg/2 Ml Vial IV 20 mg DAILY DAMIAN Administration Furosemide 40 mg 11/23/24 11:00 11/23/24 12:34 Furosemide 40 Mg Tab PO 40 mg DAILY DAMIAN Administration Haloperidol Lactate 3 mg 11/22/24 19:42 11/22/24 20:02 Haloperidol Lactate 5 Mg/Ml 1 Ml Vial IM 3 mg Q8HR PRN Administration Agitation or Acute Psychosis Lisinopril 2.5 mg 11/23/24 11:00 11/23/24 12:34 Lisinopril 2.5 Mg Tab PO 2.5 mg DAILY DAMIAN Administration Metoprolol Tartrate 50 mg 11/23/24 06:45 11/23/24 08:35 Metoprolol Tartrate 50 Mg Tab PO Not Given BID [facility] Quetiapine Fumarate 25 mg 11/22/24 21:00 11/22/24 22:14 Quetiapine 25 Mg Tab PO 25 mg HS DAMIAN Administration Objective - Vital Signs Vital signs: Vital Signs Temp 97.4 F L 11/23/24 08:00 Pulse 127 H 11/23/24 12:00 Resp 18 11/23/24 12:00 BP 107/60 11/23/24 12:00 Pulse Ox 95 11/23/24 12:00 FiO2 21 11/23/24 08:07 Intake & Output 11/22/24 11/23/24 11/23/24 18:59 06:59 18:59 Intake Total 222.389 240 236 Output Total 1100 Balance -877.611 240 236 Weight 55 kg 55 kg Intake: Intake, IV Titration 222.389 Amount Diltiazem 125 mg In 125 Dextrose 5% in Water 100 ml @ 5 MG/HR 5 mls/hr IV .Q24H [facility] Rx#:[id number] Heparin Sod,Pork in 0.45% 97.389 NaCl 25,000 unit In 0.45 % NaCl 1 250ml.bag @ 12 UNITS/KG/HR 5.987 mls/hr IV .Q24H [facility] Rx#: [id number] Oral 240 236 Output: Urine 1100 Other: Voiding Method Toilet - Exam GENERAL: The patient is alert and oriented x3, not in any acute distress. Well developed, well nourished. HEENT: Pupils are round and equally reacting to light. EOMI. No scleral icterus. No conjunctival pallor. Normocephalic, atraumatic. No pharyngeal erythema. No thyromegaly. CARDIOVASCULAR: S1 and S2 present. No murmurs, rubs, or gallops. PULMONARY: Chest is clear to auscultation, no wheezing , no crackles. ABDOMEN: Soft, nontender, nondistended, normoactive bowel sounds. No palpable organomegaly. MUSCULOSKELETAL: No joint swelling or deformity. EXTREMITIES: No cyanosis, clubbing, or pedal edema. NEUROLOGICAL: Gross neurological examination did not reveal any focal deficits. SKIN: No rashes. no petechiae. - Labs CBC & Chem 7: 11/23/24 06:58 11/23/24 06:58 Labs: Abnormal Lab Results - Last 24 Hours (Table) 11/23/24 11/23/24 Range/Units 06:58 06:58 WBC 13.80 H (4.50-10.00) 10*3/uL Immature Gran # 0.10 H (0.00-0.04) 10*3/uL Neutrophils # 11.98 H (1.80-7.70) 10*3/uL Lymphocytes # 0.89 L (0.90-5.00) 10*3/uL Sodium 133 L (137-145) mmol/L Potassium 3.4 L (3.5-5.1) mmol/L Chloride 91 L (98-107) mmol/L Carbon Dioxide 32 H (22-30) mmol/L BUN 23 H (7-17) mg/dL Assessment and Plan Assessment: New onset atrial fibrillation with RVR Acute CHF, improved Hypervolemic hyponatremia, improved Leukocytosis, unlikely pneumonia. Acute hypoxic respiratory failure secondary to above. Improving Mild transaminitis Elevated D-dimer with negative CTA for pulmonary embolism Plan: Continue with heparin drip Continue with Eliquis and metoprolol and lisinopril per salvage laborer Amiodarone per salvage laborer Lasix switched to oral dose once daily Cardiology consult echocardiogram reviewed Continue with aspirin Labs and medication were reviewed.. Continue same treatment. Continue with symptomatic treatment. Resume home medication. Monitor labs and vitals. DVT and GI prophylaxis. Further recommendations as per clinical course of the patient DVT prophylaxis: heparin GI Prophylaxis: Pepcid PT/OT: Pending Prognosis is guarded
[2024-11-24 07:00] LABS: African American GFR (CKD) 62 (>60 ml/min/1.73 sqM); Anion Gap 7 mmol/L; Blood Urea Nitrogen 32 mg/dL (7-17); Calcium 8.5 mg/dL (8.4-10.2); Carbon Dioxide 31 mmol/L (22-30); Chloride 92 mmol/L (98-107); Glucose 102 mg/dL (74-99); Non-African American GFR(CKD) 54 (>60 ml/min/1.73 sqM); Potassium 3.1 mmol/L (3.5-5.1); Sodium 130 mmol/L (137-145)
[2024-11-24] MEDS ORDERED: Potassium Replacement Protocol 1 EACH MISC MISCELLANE PRN (07:39)
[2024-11-24 09:17] LABS: ALT 71 U/L (4-34); AST 53 U/L (14-36)
[2024-11-24] MEDS: POTASSIUM CHLORIDE ER 20 MEQ TAB.ER PO SCH (10:10)
[2024-11-24] MEDS: DIGOXIN 125 MCG TAB PO SCH (10:11)
--- NOTE | 2024-11-24 11:01 | P.PN ---
Subjective HISTORY OF PRESENT ILLNESS: This is a 84-year-old female with no significant past medical history. 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 We have been asked to see the patient in consultation for atrial fibrillation and CHF. Patient examined at the bedside. Patient states that she was on her normal walk yesterday when she began to feel short of breath. She states that she was walking right near her primary care physician's office so she decided to walk inside and was seen by a provider. Patient was found to be in A-fib with RVR and she was directed to come to the emergency room. Patient denies any known history of atrial fibrillation. Patient was started on IV heparin and IV Cardizem. She remains in atrial fibrillation at the time of examination with heart rate in the 120s. She reports mild shortness of breath. Denies any chest pain or pressure. DIAGNOSTICS: - EKG reveals A-fib with RVR. - Chest CTA: Negative for pulmonary embolism. Cardiomegaly with moderate bilateral pleural effusions, intralobular septal thickening and groundglass opacities. Additional diffuse anasarca. - Laboratory data: WBC 14.95. Hemoglobin 12.9. Platelet count 240. D-dimer 1.06. Sodium 128. Potassium 4.1. BUN 23. Creatinine 0.83. AST 87. ALT 94. Troponin 0.031. 0.041. proBNP 9480. TSH 3.560. - Current home cardiac medications include none. - No previous echocardiogram, stress test, or cardiac catheterization available in EMR for review 11/23/2024 Patient examined this morning at the bedside. Patient currently has a safety counselor at the bedside as she tried to leave the unit earlier per nursing. Patient currently denies chest pain or pressure. She denies shortness of breath. She remains in atrial fibrillation with controlled ventricular rate. She remains on IV Lasix. BUN today 23. Creatinine 0.94. Sodium improved to 133. Echocardiogram completed revealing ejection fraction 20% with akinetic inferior wall, moderate to severe mitral regurgitation, moderate to severe tricuspid regurgitation, and small pericardial effusion 11/23/2024 Patient examined this morning at bedside. Patient currently denies chest pain or pressure. She denies shortness of breath. Telemetry reveals atrial fibrillation with heart rate around 110. PHYSICAL EXAM: VITAL SIGNS: Reviewed. GENERAL: Well-developed in no acute distress. HEENT: Head is normocephalic. Pupils are equal, round. Sclerae anicteric. Mucous membranes of the mouth are moist. Neck supple. No JVD or thyromegaly LUNGS: Respirations even and unlabored. Lungs essentially clear to auscultation bilaterally. HEART: Irregular rate and rhythm. S1 and S2 heard. ABDOMEN: Soft. Nondistended. Nontender. EXTREMITIES: Normal range of motion. No clubbing or cyanosis. Peripheral pulses intact. No lower extremity edema NEUROLOGIC: Awake and alert. 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 Whitman in 3 to 4 weeks Further recommendations pending patient course Nurse practitioner note has been reviewed by physician. Signing provider agrees with the documented findings, assessment, and plan of care documented by SECTION CHIEF as a scribe. Objective - Vital Signs Vital signs: Vital Signs Temp 97.5 F L 11/23/24 19:45 Pulse 101 H 11/24/24 04:55 Resp 18 11/24/24 04:55 BP 90/56 11/24/24 04:55 Pulse Ox 95 11/24/24 04:55 FiO2 21 11/23/24 08:07 Intake & Output 11/23/24 11/24/24 11/24/24 18:59 06:59 18:59 Intake Total 354 118 Balance 354 118 Weight 55 kg 55.2 kg Intake: Oral 354 118 - Labs CBC & Chem 7: 11/23/24 06:58 11/24/24 06:32 Labs: Abnormal Lab Results - Last 24 Hours (Table) 11/24/24 11/24/24 Range/Units 06:32 06:32 Sodium 130 L (137-145) mmol/L Potassium 3.1 L (3.5-5.1) mmol/L Chloride 92 L (98-107) mmol/L Carbon Dioxide 31 H (22-30) mmol/L BUN 32 H (7-17) mg/dL Glucose 102 H (74-99) mg/dL AST 53 H (14-36) U/L ALT 71 H (4-34) U/L
[2024-11-24 11:27] VITALS: TEMP 97.7
[2024-11-24 12:21] VITALS: BP 91/60; PULSE 98
== END 2024-11-24 18:06 | disposition home health service (06) | DRG 291 ==
LOC: EC 14:54 → 3SCARD 18:37
PROVIDERS: ADMIT Hospitalist; ATTEND Hospitalist
DX: I50.21 Acute systolic (congestive) heart failure (principal); J96.01 Acute respiratory failure with hypoxia; I31.39 Other pericardial effusion (noninflammatory); E87.1 Hypo-osmolality and hyponatremia; I08.1 Rheumatic disorders of both mitral and tricuspid valves; I42.9 Cardiomyopathy, unspecified; I48.91 Unspecified atrial fibrillation; R74.01 Elevation of levels of liver transaminase levels; Z79.01 Long term (current) use of anticoagulants; Z79.899 Other long term (current) drug therapy
CPT/HCPCS: 36415; 71275; 80048; 80053; 80076; 81001; 83036; 83735; 83880; 84132; 84145; 84443; 84450; 84460; 84484; 85025; 85379; 85610; 85730; 93005; 93306; 94760; 96365; 96366; 96368; 96375; 96376; 99291